=== PATIENT | male | born 1965 ===

== ENCOUNTER → 2016-07-30 | Outpatient (CLI) | payer MEDICAID ==
[~2016-07-30] MED LIST: REGADENOSON 0.4 MG/5 ML SYR IVP ONE
== END ==
LOC: FIMAGING 12:41
PROVIDERS: ATTEND Nurse Practitioner Adult Health
DX: R07.9 Chest pain, unspecified (principal); R06.00 Dyspnea, unspecified; I50.9 Heart failure, unspecified; I10 Essential (primary) hypertension; E66.2 Morbid (severe) obesity with alveolar hypoventilation
CPT/HCPCS: 78452; 93017; A9500; J2785